=== PATIENT | female | born 1960 | race Hispanic/Latino ===

== ENCOUNTER 2016-11-07 02:52 | Inpatient (IN) | payer OTHER ==
--- NOTE | 2016-11-07 02:56 | ED PDOC ---
Arrival/HPI - General Historian: Patient - History of Present Illness Time/Duration: 4-6 hours Symptom Onset: Sudden Symptom Course: Worsening Quality: Stabbing, Gas Like Severity Level: Severe Activities at Onset: Rest - General Chief Complaint: Abdominal Pain Time Seen by Provider: 11/07/16 02:55 - History of Present Illness Narrative History of Present Illness (Text): 11/07/16 03:24 55yo F with PMHx of Type 1 DM here for evaluation of severe abdominal pain. Patient states that she started having some right sided abdominal pain at 4PM yesterday afternoon after eating some chicken and sausage paella. Pain started about an hour after eating. She reports that initially the pain could be described as gas-like. She was able to find a comfortable position to lay in and fell asleep at 9PM. She woke up abruptly just prior to arrival with severe right upper and right lower abdominal pain. Described as 10/10, severe, sharp pain. Unable to find a comfortable position. She reports some mild nausea last night, none currently. Denies any diarrhea and reports a normal BM at 1AM. Does report chills. No urinary symptoms. Denies CP/SOB. No Headaches. She checked her Finger Stick Blood glucose prior to coming and it was 160. PMD: Dr. Lopez PMHx: Type 1 DM PSHx: Right Carpal Tunnel release. 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 Denies any Tobacco, Social ETOH use. Denies illicit drugs NKDA (Magalis,Rafael) Past Medical History - Provider Review Nursing Documentation Reviewed: Yes - Endocrine/Metabolic Hx Diabetes Mellitus Type 1: Yes Family/Social History - Physician Review Nursing Documentation Reviewed: Yes Family/Social History: No Known Family HX Smoking Status: Never Smoked Frequency of alcohol use: Socially Hx Substance Use: No Allergies/Home Meds Allergies/Adverse Reactions: Allergies No Known Allergies Allergy (Verified 11/07/16 03:06) Home Medications: Home Meds Medication Instructions Recorded Confirmed Insulin Regular [HumuLIN R] 4 unit SQ ACBD 11/07/16 11/07/16 Insulin Glargine, Recombina 12 unit SC HS 11/07/16 11/07/16 [Lantus] Review of Systems - Physician Review All systems were reviewed & negative as marked: Yes - Review of Systems Constitutional: Normal Eyes: Normal ENT: Normal Respiratory: Normal Cardiovascular: Normal. absent: Chest Pain, Palpitations, SPRINGER Gastrointestinal: Abdominal Pain. absent: Constipation, Diarrhea, Nausea, Vomiting Genitourinary Female: absent: Dysuria, Frequency, Hematuria Musculoskeletal: absent: Arthralgias, Back Pain Skin: absent: Rash, Skin Lesions Neurological: absent: Headache, Dizziness Endocrine: absent: Diaphoresis Physical Exam Temperature: Febrile Blood Pressure: Normal Pulse: Tachycardic Respiratory Rate: Normal Appearance: Positive for: Ill-Appearing, Uncomfortable Pain Distress: Severe Mental Status: Positive for: Alert and Oriented X 3 - Systems Exam Head: Present: Atraumatic, Normocephalic Extroacular Muscles: Present: EOMI Conjunctiva: Present: Normal. No: Injected, Icteric Mouth: Present: Moist Mucous Membranes. No: Dry Neck: Present: Normal Range of Motion. No: MIDLINE TENDERNESS, JVD Respiratory/Chest: Present: Clear to Auscultation, Good Air Exchange. No: Respiratory Distress, Accessory Muscle Use, Wheezes, Rhonchi Cardiovascular: Present: Regular Rate and Rhythm, Normal S1, S2. No: Murmurs Abdomen: Present: Tenderness (RUQ and RLQ tenderness), Peritoneal Signs, Guarding (voluntary guarding. ), McBurney's Point Tender (RLQ tenderness), Other (Right lower quadrant abdominal tenderness on palpation. No Rebound. Soft , non-distended. ). No: Distention, Rebound Back: Present: Normal Inspection Upper Extremity: Present: Normal Inspection. No: Edema Lower Extremity: Present: Normal Inspection, NORMAL PULSES. No: Edema, CALF TENDERNESS Neurological: Present: GCS=15 Skin: Present: Warm, Dry, Normal Color Psychiatric: Present: Alert, Oriented x 3 Medical Decision Making ED Course and Treatment: 11/07/16 04:21 55yo F with PMHx of DM here for evaluation of severe abdominal pain - Patient with RUQ and RLQ abd pain - Bedside US of the RUQ performed with no apparent cholelithiasis. Will get formal ABD US - CT Abd/Pelvis w/IV - Abd US complete - CBC - CMP - Mg - Phos - UA - Morphine - IVF - Reassess and dispo 11/07/16 04:43 Abd US - Negative sonographic mejia's. No wall thickening. No cholelithiasis. No perichole fluid. CBD 4mm. Leukocytosis 12.7 Hb 11.3 Hct 34.1 11/07/16 04:54 Upon reevaluation, patient with mildly improved pain. - Morphine 8mg 11/07/16 05:25 CT Abd/Pelvis - Acute Appendicitis. Possible microperforation. - CXR - EKG - Zosyn - NS @ 140 - NPO - Discussed findings with patient. All questions and concerns addressed. Patient understands and agrees with plan. - Discussed case with Dr. Parmar. Accepts patient under her service. Agrees with current plan. Requests medical consult for Type 1 DM management. - Discussed case with Surgery Resident, who agrees with plan and will come evaluate the patient. Discussed case with medical photographer, who states that he will come to assess the patient in the ED. (Rafael Blancas) 11/07/16 06:27 Patient seen by resident and then evaluated by me. Agree with above documentation (Layla Agustin) - Lab Interpretations Lab Results: 11/07/16 03:20 11/07/16 03:20 Lab Results 11/07/16 04:25: Urine Color Yellow, Urine Appearance Clear, Urine pH 8.5, Ur Specific [place] 1.015, Urine Protein Negative, Urine Glucose (UA) >=1000, Urine Ketones 40 H, Urine Blood Negative, Urine Nitrate Negative, Urine Bilirubin Negative, Urine Urobilinogen 0.2, Ur Leukocyte Esterase Negative 11/07/16 03:20: Sodium 135, Potassium 4.1, Chloride 101, Carbon Dioxide 24, Anion Gap 14, BUN 16, Creatinine 0.9, Est GFR ( Amer) > 60, Est GFR (Non- Af Amer) > 60, Random Glucose 281 H, Calcium 10.4, Phosphorus 2.2 L, Magnesium 1.6 L, Total Bilirubin 0.8, AST 35, ALT 31, Alkaline Phosphatase 124, Total Protein 7.5, Albumin 4.2, Globulin 3.3, Albumin/Globulin Ratio 1.3 11/07/16 03:20: PT 10.9, INR 1.01, APTT 29.3 11/07/16 03:20: WBC 12.7 H, RBC 3.99, Hgb 11.3 L, Hct 34.1 L, MCV 85.5, MCH 28.3 , MCHC 33.1, RDW 13.5, Plt Count 305, MPV 9.2, Gran % 76.7 H, Lymph % (Auto) 17.0 L, Woodson % (Auto) 5.2, Eos % (Auto) 0.9 L, Baso % (Auto) 0.2, Gran # 9.70 H , Lymph # 2.2, Woodson # 0.7 H, Eos # 0.1, Baso # 0.03 - RAD Interpretation Radiology Orders: 11/07/16 03:15 ABD & PELVIS IV CONTRAST ONLY [CT] Stat ABDOMEN COMPLETE [US] Stat - Medication Orders Current Medication Orders: Hydromorphone HCl (Dilaudid) 1 mg IVP Q4H PRN PRN Reason: Pain, moderate (4-7) Sodium Chloride (Sodium Chloride 0.9%) 1,000 mls @ 120 mls/hr IV .Q8H20M YISSEL Magnesium Sulfate 2 gm/ Sodium (Chloride) 104 mls @ 102 mls/hr IVPB ONCE ONE Stop: 11/07/16 07:03 Sodium Phosphate 15 mmole/ (Sodium Chloride) 255 mls @ 42.5 mls/hr IVPB ONCE ONE Stop: 11/07/16 12:11 Metronidazole (Flagyl) 500 mg in 100 mls @ 100 mls/hr IVPB Q8 YISSEL PRN Reason: Protocol Ampicillin Sodium/Sulbactam (Sodium 3 gm/ Sodium Chloride) 100 mls @ 200 mls/ hr IVPB Q6 YISSEL PRN Reason: Protocol Discontinued Medications Sodium Chloride (Sodium Chloride 0.9%) 1,000 mls @ 999 mls/hr IV .Q1H1M STA Stop: 11/07/16 04:15 Last Admin: 11/07/16 03:37 Dose: 999 mls/hr Piperacillin Sod/Tazobactam Sod (Zosyn 3.375 In Ns 100ml) 100 mls @ 200 mls/hr IVPB STAT STA PRN Reason: Protocol Stop: 11/07/16 05:32 Last Admin: 11/07/16 05:41 Dose: 200 mls/hr Iohexol (Omnipaque 350 100 Ml) Confirm Administered Dose 350 mg .ROUTE .STK-MED ONE Stop: 11/07/16 04:03 Morphine Sulfate (Morphine) 4 mg IVP STAT STA Stop: 11/07/16 03:16 Last Admin: 11/07/16 03:35 Dose: 4 mg Morphine Sulfate (Morphine) 8 mg IVP STAT STA Stop: 11/07/16 04:53 Last Admin: 11/07/16 05:06 Dose: 8 mg - PA / PATIENT OBSERVER / Resident Statement / has reviewed & agrees with the documentation as recorded. / has examined the patient and agrees with the treatment plan. Disposition/Present on Arrival - Present on Arrival Any Indicators Present on Arrival: No History of DVT/PE: No History of Uncontrolled Diabetes: No Urinary Catheter: No History of Decub. Ulcer: No - Disposition Have Diagnosis and Disposition been Completed?: Yes Disposition Time: 05:37 Patient Plan: Admission - Disposition Diagnosis: Acute appendicitis Disposition: HOSPITALIZED Condition: STABLE
[2016-11-07] MEDS ORDERED: Morphine 4 mg/ml ISec IVP STA ×2 (03:15→04:52)
[2016-11-07] MEDS ORDERED: Sodium Chloride 0.9% 1,000 ML IV STA (03:15)
[2016-11-07 03:39] LABS: BASO # 0.03 K/mm3 (0.0-2.0); BASO % 0.2 % (0.0-3.0); EOS # 0.1 (0.0-0.7); EOS % 0.9 % (1.5-5.0); GRAN # 9.7 (1.4-6.5); GRAN % 76.7 % (50.0-68.0); HEMATOCRIT 34.1 % (36.0-48.0); LYMPH # 2.2 (1.2-3.4); MEAN CELL VOLUME 85.5 fl (80.0-105.0); MEAN CORPUSCULAR HEMOGLOBIN 28.3 pg (25.0-35.0); MEAN CORPUSCULAR HGB CONC 33.1 g/dl (31.0-37.0); MEAN PLATELET VOLUME 9.2 fl (7.0-11.0); MONO # 0.7 (0.1-0.6); MONO % 5.2 % (1.0-6.0); RED CELL DISTRIBUTION WIDTH 13.5 % (11.5-14.5); WHITE BLOOD COUNT 12.7 10^3/ul (4.5-11.0)
[2016-11-07 03:49] LABS: INR 1.01 (0.93-1.08); PARTIAL THROMBOPLASTIN TIME 29.3 Seconds (23.7-30.8)
[2016-11-07 03:54] LABS: ALB/GLOB RATIO 1.3 (1.1-1.8); ALKALINE PHOSPHATASE 124 U/L (38-133); ALT/SGPT 31 U/L (7-56); AST/SGOT 35 U/L (15-39); BILIRUBIN,TOTAL 0.8 mg/dL (0.2-1.3); BLOOD UREA NITROGEN 16 mg/dL (7-21); CALCIUM 10.4 mg/dL (8.4-10.5); CARBON DIOXIDE 24 mmol/L (21-33); CHLORIDE 101 mmol/L (95-110); GFR AFRICAN-AMERICAN > 60; GLUCOSE,RANDOM 281 mg/dL (70-110); MAGNESIUM 1.6 mg/dL (1.7-2.2); PHOSPHOROUS 2.2 mg/dL (2.5-4.5); POTASSIUM 4.1 mmol/L (3.6-5.0); SODIUM 135 mmol/L (132-148); TOTAL PROTEIN 7.5 g/dL (5.8-8.3)
[2016-11-07] MEDS ORDERED: Iohexol 350 MG/100 ML VIAL ONE (04:02)
--- NOTE | 2016-11-07 04:36 | US ---
EXAM: US Abdomen Complete EXAM DATE/TIME: 11/07/2016 3:15 AM CLINICAL HISTORY: 55 years old, female; Pain; Abdominal pain; Other: Ruq; Additional info: Ruq pain TECHNIQUE: Real-time ultrasound of the abdomen (complete) with image documentation. COMPARISON: No relevant prior studies available. FINDINGS: There is a negative sonographic Curran's sign per space technologist. No gallstones. No pericholecystic fluid. The gallbladder wall measures 2 mm which is within normal limits. The common bile duct measures 4 mm which is within normal limits. The liver is normal and measures 18 cm. The spleen is normal. The pancreas is normal. No hydronephrosis. The right kidney measures 10.8 cm in length and the left kidney measures 9.3 cm in length. IMPRESSION: No acute findings.
[2016-11-07] MEDS ORDERED: Piperacillin/Tazobact 3.375 gm 100 ML IVPB STA (05:03)
--- NOTE | 2016-11-07 05:03 | CT ---
EXAM: CT Abdomen and Pelvis With Intravenous Contrast EXAM DATE/TIME: 11/07/2016 3:15 AM CLINICAL HISTORY: 55 years old, female; Pain; Abdominal pain; Localized; Right lower quadrant (rlq); Additional info: Ruq and rlq abd pain TECHNIQUE: Axial computed tomography images of the abdomen and pelvis with intravenous contrast. All CT scans at this facility use one or more dose reduction techniques, viz.: automated exposure control; ma/kV adjustment per patient size (including targeted exams where dose is matched to indication; i.e. head); or iterative reconstruction technique. Coronal and sagittal reformatted images were created and reviewed. CONTRAST: 94 mL of omni 350 administered intravenously. COMPARISON: No relevant prior studies available. FINDINGS: The liver is normal. The spleen is normal. The pancreas is normal. No gallstones. No hydronephrosis or perinephric stranding. The appendix is identified on coronal images 37 - 53, axial images 112 121. There is a faint 5 mm appendicolith at the base on coronal image 51, axial image 121 with a fluid-filled appendix coursing superiorly. The appendix is dilated measuring 10 mm and there is lack of intraluminal air. There is stranding in the surrounding fat consistent with inflammation. On axial image 117 and coronal image 54, there is an air foci along the cecal wall that is not clearly intraluminal possibly representing very early microperforation. No abscess collection. IMPRESSION: Positive appendicitis as described in detail above.
[2016-11-07] MEDS ORDERED: Sodium Chloride 0.9% 1,000 ML IV SCH (05:15)
[2016-11-07 05:17] LABS: PH,URINE 8.5 (4.7-8.0); URINE BILIRUBIN NEGATIVE (NEGATIVE); URINE BLOOD NEGATIVE (NEGATIVE); URINE GLUCOSE (UA) >=1000 mg/dL (NEGATIVE); URINE KETONE 40 mg/dL (NEGATIVE); URINE LEUKOCYTE ESTERASE NEGATIVE Leu/uL (NEGATIVE); URINE PROTEIN NEGATIVE mg/dL (<30 mg/dL); URINE UROBILINOGEN 0.2 E.U./dL (<1 E.U./dL)
[2016-11-07 05:24] LABS: URINE APPEARANCE CLEAR (CLEAR); URINE COLOR YELLOW (YELLOW)
[2016-11-07] MEDS ORDERED: Magnesium Sulfate 2 GM in Sodium Chloride 0.9% 100 ML IVPB ONE (06:02)
[2016-11-07] MEDS ORDERED: Potassium Phosphate 3 mmol/ml Inj IV ONE (06:02)
[2016-11-07] MEDS ORDERED: Sodium Phosphate 15 MMOLE in Sodium Chloride 0.9% 250 ML IVPB ONE (06:12)
[2016-11-07] MEDS ORDERED: HYDROmorphone 1 mg/ml ISec IVP PRN (06:24)
--- NOTE | 2016-11-07 06:33 | CP.PCM.CON ---
Addendum entered and electronically signed by Zuleyma Avalos DO 11/07/16 07:14 : Plan: 12 units of Levemir SC; Lispro-low sliding scale, accuchecks q4h Original Note: <Zuleyma Avalos - Last Filed: 11/07/16 07:00> History of Present Illness - History of Present Illness History of Present Illness: Zuleyma Avalos DO, PGY-1, Medical Consult note CC: RLQ Abdominal Pain 55 year old with a past medical history significant for Type I DM presents to the ED for 1 day of RLQ pain. She states yesterday at noon she developed some sharp, RLQ abdominal pain that became severe within an hour. She thought it was just gas or bloating, so she took some Tums, went for a walk, and did some yoga - all of which was unrelieving. She had nausea and no appetite, but no vomiting , diarrhea, fever. She had trouble finding a comfortable position in bed, but fell asleep with a pillow between her thighs, one that she hugged, in the position. GIven the increasing severity(scaled 10/10) and the abrupt nature of the RLQ pain she came to the ED. PMD: Dr. Guerita Pollock PMH: Type I DM diagnosed at age 36 Medications: Novolog sliding scale, Lantus HS 12-14 units, Vitamin D Allergies: NKDA Surgical History: Right carpal tunnel release and right (benign) breast mass removed Hospitalizations: DKA last year, left thumb tendinitis OBGYN: 5 miscarriages, 1 ectopic Social: , is currently away on a business trip in [place], no children, criminal defense attorney by occupation, looking for a new job, no tobacco, alcohol rarely, no illicit drugs Review of Systems - Constitutional Constitutional: As Per HPI Past Patient History - Past Social History Smoking Status: Never Smoked - CARDIAC Hx Cardiac Disorders: No - PULMONARY Hx Respiratory Disorders: No - NEUROLOGICAL Hx Neurological Disorder: No - HEENT Hx HEENT Problems: No - RENAL Hx Chronic Kidney Disease: No - ENDOCRINE/METABOLIC Hx Diabetes Mellitus Type 1: Yes - HEMATOLOGICAL/ONCOLOGICAL Hx Blood Disorders: No - INTEGUMENTARY Hx Dermatological Problems: No - MUSCULOSKELETAL/RHEUMATOLOGICAL Hx Musculoskeletal Disorders: No - GASTROINTESTINAL Hx Gastrointestinal Disorders: No - GENITOURINARY/GYNECOLOGICAL Hx Genitourinary Disorders: No - PSYCHIATRIC Hx Substance Use: No - SURGICAL HISTORY Hx Tonsillectomy: Yes Other/Comment: rt carpal tunnel Meds Allergies/Adverse Reactions: Allergies Allergy/AdvReac Type Severity Reaction Status Date / Time No Known Allergies Allergy Verified 11/07/16 03:06 - Medications Medications: Current Medications Sodium Chloride (Sodium Chloride 0.9%) 1,000 mls @ 120 mls/hr IV .Q8H20M YISSEL Magnesium Sulfate 2 gm/ Sodium (Chloride) 104 mls @ 102 mls/hr IVPB ONCE ONE Stop: 11/07/16 07:03 Sodium Phosphate 15 mmole/ (Sodium Chloride) 255 mls @ 42.5 mls/hr IVPB ONCE ONE Stop: 11/07/16 12:11 Physical Exam - Constitutional Appears: No Acute Distress, Younger Than Stated Age - Head Exam Head Exam: ATRAUMATIC, NORMOCEPHALIC - Eye Exam Eye Exam: EOMI, Normal appearance, PERRL - ENT Exam ENT Exam: Mucous Membranes Dry, Normal Oropharynx - Neck Exam Neck exam: Positive for: Normal Inspection. Negative for: Thyromegaly - Respiratory Exam Respiratory Exam: Clear to Auscultation Bilateral Additional comments: stomach gargles heard on left lung auscultation, tachypnea with RR of 20 - Cardiovascular Exam Cardiovascular Exam: RRR, +S1, +S2 - GI/Abdominal Exam GI & Abdominal Exam: Guarding Additional comments: Rebound tenderness on release of LLQ pain, paion in RLQ when flexing right hip when supine, positive for tenderness in McBurney's point - Extremities Exam Extremities exam: Positive for: normal capillary refill, normal inspection, pedal pulses present - Back Exam Back exam: NORMAL INSPECTION. absent: CVA tenderness (L), CVA tenderness (R) - Neurological Exam Neurological exam: Alert, CN II-XII Intact, Oriented x3 - Psychiatric Exam Psychiatric exam: Anxious, Normal Affect, Normal Mood - Skin Skin Exam: Dry, Intact, Normal Color, Warm Results - Vital Signs Recent Vital Signs: Last Vital Signs Temp 99.3 F 11/07/16 05:59 Pulse 78 11/07/16 05:59 Resp 16 11/07/16 05:59 BP 123/58 L 11/07/16 05:59 Pulse Ox 99 11/07/16 05:59 - Labs Result Diagrams: 11/07/16 03:20 11/07/16 03:20 Assessment & Plan - Assessment and Plan (Free Text) Assessment: 55 year old female with PMH of Type I DM who presents with 1 day of acute, severe, unremitting RLQ with findings classic for acute appendicitis. Plan: 1) Acute Appendicitis - General Surgery is on the case, planning for surgery soon today. Case discussed with surgery resident, PGY-3. - NPO - 120cc/hr NS - 2 grams of MgSO4 - Unasyn 3 grams q6h - Flagyl 500 mg q6h - Dilaudid 1 mg q4h IVP PRN 2) IDDM - Insulin sliding scale 3) Post-operative planning - Date & Time Date: 11/07/16 Time: 06:59 <Mustapha Lantigua P - Last Filed: 11/07/16 08:38> Meds - Medications Medications: Current Medications Hydromorphone HCl (Dilaudid) 1 mg IVP Q4H PRN PRN Reason: Pain, moderate (4-7) Hydromorphone HCl (Dilaudid) 0.5 mg IVP Q3 PRN PRN Reason: severe/breakthrough pain Sodium Chloride (Sodium Chloride 0.9%) 1,000 mls @ 120 mls/hr IV .Q8H20M YISSEL Sodium Phosphate 15 mmole/ (Sodium Chloride) 255 mls @ 42.5 mls/hr IVPB ONCE ONE Stop: 11/07/16 12:11 Metronidazole (Flagyl) 500 mg in 100 mls @ 100 mls/hr IVPB Q8 YISSEL PRN Reason: Protocol Ampicillin Sodium/Sulbactam (Sodium 3 gm/ Sodium Chloride) 100 mls @ 200 mls/ hr IVPB Q6 YISSEL PRN Reason: Protocol Insulin Detemir (Levemir) 12 unit SC HS YISSEL Insulin Human Lispro (Humalog Low) 0 units SC Q4 YISSEL PRN Reason: Protocol Results - Vital Signs Recent Vital Signs: Last Vital Signs Temp 99 F 11/07/16 08:33 Pulse 81 11/07/16 08:33 Resp 20 11/07/16 08:33 BP 119/74 11/07/16 08:33 Pulse Ox 98 11/07/16 08:33 - Labs Result Diagrams: 11/07/16 03:20 11/07/16 03:20 Labs: Laboratory Results - last 24 hr 11/07/16 07:52 POC Glucose (mg/dL) 226 H Attending/Attestation - Attestation I have personally seen and examined this patient.: Yes I have fully participated in the care of the patient.: Yes I have reviewed all pertinent clinical information: Yes Notes (Text): Patient being admitted with acute appendicitis and has h/o type 1 DM on lantus 12 units, in the night and takes about 2-3 units of regular insulin with snacks and about 4-6 units with the meals, has taken her night lantus insulin. Lantus will be changed to Levemir 12 units hs, humlog low sliding scale coverage will be started q4 hrs than usual q6 hr coverage to have more close and frequent coverage. Patient has ketones in the urine, normal bicarb, not RR about18/min, clinically not in DKA.
--- NOTE | 2016-11-07 06:57 | CP.PCM.HP ---
History of Present Illness - History of Present Illness History of Present Illness: Gen Surg: Dr Parmar Pt is a 55F with PMH of DM1 who presents with new onset abdominal pain. Pt states pain started around 5PM yesterday and is located mainly on the right side of the abdomen. Pain has been a persistent 10/10, with associated nausea. Pt denies any emesis, diarrhea, fevers or chills. She has had no appetite since onset. Pt has had only minimal relief s/p [address] scan confirms appendicitis PMH: DM1 PSH: right carpal tunnel, right breast lumpectomy NKDA LMP: Menopause x 3 years Present on Admission - Present on Admission Any Indicators Present on Admission: No Review of Systems - Review of Systems All systems: reviewed and no additional remarkable complaints except (as per hpi ) Past Patient History - Past Social History Smoking Status: Never Smoked - CARDIAC Hx Cardiac Disorders: No - PULMONARY Hx Respiratory Disorders: No - NEUROLOGICAL Hx Neurological Disorder: No - HEENT Hx HEENT Problems: No - RENAL Hx Chronic Kidney Disease: No - ENDOCRINE/METABOLIC Hx Diabetes Mellitus Type 1: Yes - HEMATOLOGICAL/ONCOLOGICAL Hx Blood Disorders: No - INTEGUMENTARY Hx Dermatological Problems: No - MUSCULOSKELETAL/RHEUMATOLOGICAL Hx Musculoskeletal Disorders: No - GASTROINTESTINAL Hx Gastrointestinal Disorders: No - GENITOURINARY/GYNECOLOGICAL Hx Genitourinary Disorders: No - PSYCHIATRIC Hx Substance Use: No - SURGICAL HISTORY Hx Tonsillectomy: Yes Other/Comment: rt carpal tunnel Meds Allergies/Adverse Reactions: Allergies Allergy/AdvReac Type Severity Reaction Status Date / Time No Known Allergies Allergy Verified 11/07/16 03:06 Physical Exam - Constitutional Appears: Non-toxic - Head Exam Head Exam: NORMOCEPHALIC - Eye Exam Eye Exam: Normal appearance - ENT Exam ENT Exam: Mucous Membranes Moist - Respiratory Exam Respiratory Exam: absent: Accessory Muscle Use, Respiratory Distress - Cardiovascular Exam Cardiovascular Exam: REGULAR RHYTHM - GI/Abdominal Exam GI & Abdominal Exam: Guarding (voluntary), Rebound, Soft, Tenderness (RLQ). absent: Distended, Hernia, Rigid - Rectal Exam Rectal Exam: absent: Deferred - Extremities Exam Extremities exam: Negative for: pedal edema - Neurological Exam Neurological exam: Alert, Oriented x3 - Psychiatric Exam Psychiatric exam: Normal Affect, Normal Mood Results - Vital Signs Recent Vital Signs: Last Vital Signs Temp 99.3 F 11/07/16 05:59 Pulse 78 11/07/16 05:59 Resp 16 11/07/16 05:59 BP 123/58 L 11/07/16 05:59 Pulse Ox 99 11/07/16 05:59 - Labs Result Diagrams: 11/07/16 03:20 11/07/16 03:20 Assessment & Plan - Assessment and Plan (Free Text) Assessment: 55F with acute appendicitis Plan: NPO IV fluids Iv abx Medical consult for management of DM1 OR for laparoscopic appendectomy d/w Dr Ghulam Robertson, PGY3
--- NOTE | 2016-11-07 07:01 | CP.PCM.PN ---
Subjective - Date & Time of Evaluation Date of Evaluation: 11/07/16 Time of Evaluation: 06:57 - Subjective Subjective: Patient being admitted with acute appendicitis and has h/o type 1 DM on lantus 12 units, in the night and takes about 2-3 units of regular insulin with snacks and about 4-6 units with the meals, has taken her night lantus insulin. Lantus will be changed to Levemir 12 units hs, humlog low sliding scale coverage will be started q4 hrs than usual q6 hr coverage to have more close and frequent coverage. Patient has ketones in the urine, normal bicarb, not RR about18/min, clinically not in DKA. Objective - Vital Signs/Intake and Output Vital Signs (last 24 hours): Temp Pulse Resp BP Pulse Ox 99.3 F 78 16 123/58 L 99 11/07/16 05:59 11/07/16 05:59 11/07/16 05:59 11/07/16 05:59 11/07/16 05:59 - Medications Medications: Current Medications Hydromorphone HCl (Dilaudid) 1 mg IVP Q4H PRN PRN Reason: Pain, moderate (4-7) Sodium Chloride (Sodium Chloride 0.9%) 1,000 mls @ 120 mls/hr IV .Q8H20M YISSEL Magnesium Sulfate 2 gm/ Sodium (Chloride) 104 mls @ 102 mls/hr IVPB ONCE ONE Stop: 11/07/16 07:03 Sodium Phosphate 15 mmole/ (Sodium Chloride) 255 mls @ 42.5 mls/hr IVPB ONCE ONE Stop: 11/07/16 12:11 Metronidazole (Flagyl) 500 mg in 100 mls @ 100 mls/hr IVPB Q8 YISSEL PRN Reason: Protocol Ampicillin Sodium/Sulbactam (Sodium 3 gm/ Sodium Chloride) 100 mls @ 200 mls/ hr IVPB Q6 YISSEL PRN Reason: Protocol Insulin Detemir (Levemir) 12 unit SC HS YISSEL Insulin Human Lispro (Humalog Low) 0 units SC Q4 YISSEL PRN Reason: Protocol - Labs Labs: PT 10.9 Seconds (9.9-11.8) 11/07/16 03:20 INR 1.01 (0.93-1.08) 11/07/16 03:20 APTT 29.3 Seconds (23.7-30.8) 11/07/16 03:20
--- NOTE | 2016-11-07 07:48 | RAD ---
HISTORY: pre-op clearance COMPARISON: No prior. FINDINGS: LUNGS: No active pulmonary disease. PLEURA: No significant pleural effusion identified, no pneumothorax apparent. CARDIOVASCULAR: Normal. OSSEOUS STRUCTURES: No significant abnormalities. VISUALIZED UPPER ABDOMEN: Normal. OTHER FINDINGS: None. IMPRESSION: No active disease.
[2016-11-07] MEDS: Insulin Lispro (humaLOG) LOW Coverage SC SCH ×2 (08:34→12:43)
[2016-11-07] MEDS: HYDROmorphone 0.5 mg/0.5 ml ISec IVP PRN ×2 (11:41→21:47)
[2016-11-07] MEDS: Ampicillin/Sulbactam 3 GM in Sodium Chloride 0.9% 100 ML IVPB SCH ×3 (12:43→23:11)
[2016-11-07] MEDS: metroNIDAZOLE IV 500 mg/100 ml 500 MG/100 ML BAG IVPB SCH ×2 (13:39→21:46)
[2016-11-07] MEDS ORDERED: Lactated Ringer's 1,000 ML IV SCH (13:42)
[2016-11-07] MEDS ORDERED: Succinylcholine 200 mg/10 ml Inj IV ONE (13:47)
[2016-11-07] MEDS ORDERED: Propofol 10 mg/ml Inj (20 ML) ONE ×2 (13:47→15:19)
[2016-11-07] MEDS ORDERED: Bupivacaine 0.5% Inj(30mL) ONE (14:20)
[2016-11-07] MEDS ORDERED: Rocuronium 10 mg/ml (5 ml) ONE (14:41)
[2016-11-07] MEDS ORDERED: Neostigmine Methylsulfate 3mg/3ml Syringe IV ONE (15:21)
--- NOTE | 2016-11-07 15:28 | CARD ---
APPROVED REPORT EKG Measurement Heart [id number] HI [id number] [id number] <Conclusion> Normal sinus rhythm Normal ECG
[2016-11-07] MEDS ORDERED: Phenylephrine 10 mg/ml Inj ONE (15:56)
[2016-11-07] MEDS ORDERED: Desflurane Inhalation Anesthetic Liq (240 ml) ONE (16:11)
--- NOTE | 2016-11-07 16:48 | PCM.SURG1 ---
Surgeon's Initial Post Op Note - Surgeon's Notes Surgeon: Dr. Ureña Insurance Risk Analyst: Dr. Beyer PGY3 Dr. Rees PGY2 Dr. Nelson PGY1 Type of Anesthesia: General Endo, Local Pre-Operative Diagnosis: acute appendicitis Operative Findings: see op report Post-Operative Diagnosis: acute perforated appendicitis Operation Performed: laparoscopic appendectomy Specimen/Specimens Removed: appendix Estimated Blood Loss: EBL {In ML}: 20 Blood Products Given: N/A Drains Used: Moshe Post-Op Condition: Good Date of Surgery/Procedure: 11/07/16 Time of Surgery/Procedure: 16:48
[2016-11-07] MEDS: Insulin Lispro (humaLOG) MEDIUM Coverage SC SCH ×2 (18:37→21:46)
[2016-11-07] MEDS: Sodium Chloride 0.9% 1,000 ML IV SCH (18:40)
[2016-11-07] MEDS ORDERED: Insulin Detemir 100 units/ml Vial (Levemir) SC SCH (22:00)
[2016-11-08] MEDS: HYDROmorphone 0.5 mg/0.5 ml ISec IVP PRN ×2 (04:23→11:09)
[2016-11-08] MEDS: Ampicillin/Sulbactam 3 GM in Sodium Chloride 0.9% 100 ML IVPB SCH ×4 (05:05→23:44)
[2016-11-08] MEDS: metroNIDAZOLE IV 500 mg/100 ml 500 MG/100 ML BAG IVPB SCH ×3 (06:15→22:22)
--- NOTE | 2016-11-08 06:53 | CP.PCM.PN ---
<Dasia Mixon - Last Filed: 11/08/16 16:38> Subjective - Date & Time of Evaluation Date of Evaluation: 11/08/16 Time of Evaluation: 09:30 - Subjective Subjective: PGY2 Medicine note for Dr. Smith Patient seen and examined at bedside. Patient is POD#1 lap appy. She reports some abdominal discomfort and suprapubic discomfort. She denies fever, chills, chest pain, palpitations, SOB, cough, nausea, vomiting, bowel/bladder complaints , pain/swelling in her legs bilaterally. She is tolerating diet. Black drain 40cc serosanguinous fluid. Objective - Vital Signs/Intake and Output Vital Signs (last 24 hours): Temp Pulse Resp BP Pulse Ox 99.6 F 68 16 98/52 L 98 11/07/16 18:20 11/07/16 18:20 11/07/16 18:20 11/07/16 18:20 11/07/16 18:20 Intake and Output: 11/07/16 11/08/16 18:59 06:59 Intake Total 240 Balance 240 - Medications Medications: Current Medications Acetaminophen (Tylenol 325mg Tab) 650 mg PO Q4H PRN PRN Reason: Fever >100.4 F Heparin Sodium (Porcine) (Heparin) 5,000 units SC Q12 [facility] PRN Reason: Protocol Hydromorphone HCl (Dilaudid) 0.5 mg IVP Q3 PRN PRN Reason: severe/breakthrough pain Last Admin: 11/08/16 04:23 Dose: 0.5 mg Sodium Chloride (Sodium Chloride 0.9%) 1,000 mls @ 120 mls/hr IV .Q8H20M [facility] Last Admin: 11/07/16 18:40 Dose: 120 mls/hr Metronidazole (Flagyl) 500 mg in 100 mls @ 100 mls/hr IVPB Q8 [facility] PRN Reason: Protocol Last Admin: 11/08/16 06:15 Dose: 100 mls/hr Ampicillin Sodium/Sulbactam (Sodium 3 gm/ Sodium Chloride) 100 mls @ 200 mls/ hr IVPB Q6 [facility] PRN Reason: Protocol Last Admin: 11/08/16 05:05 Dose: 200 mls/hr Insulin Detemir (Levemir) 12 unit SC HS [facility] Insulin Human Lispro (Humalog Med) 0 units SC ACHS [facility] PRN Reason: Protocol Last Admin: 11/07/16 21:46 Dose: 2 units Tramadol HCl (Ultram) 50 mg PO Q6 PRN PRN Reason: Pain, moderate (4-7) Last Admin: 11/08/16 00:26 Dose: 50 mg - Labs Labs: PT 10.9 Seconds (9.9-11.8) 11/07/16 03:20 INR 1.01 (0.93-1.08) 11/07/16 03:20 APTT 29.3 Seconds (23.7-30.8) 11/07/16 03:20 - Constitutional Appears: Non-toxic, No Acute Distress - Head Exam Head Exam: NORMAL INSPECTION - Eye Exam Eye Exam: EOMI, Normal appearance. absent: Conjunctival injection, Scleral icterus - ENT Exam ENT Exam: Mucous Membranes Moist - Respiratory Exam Respiratory Exam: Clear to Ausculation Bilateral, NORMAL BREATHING PATTERN. absent: Accessory Muscle Use, Rales, Rhonchi, Wheezes, Respiratory Distress - Cardiovascular Exam Cardiovascular Exam: REGULAR RHYTHM, RRR, +S1, +S2 - GI/Abdominal Exam GI & Abdominal Exam: Soft, Tenderness (suprapubic) Additional comments: dressings c/d/i serosanguinous Moshe drain 40cc serosanguinous - Extremities Exam Extremities Exam: Normal Inspection - Neurological Exam Neurological Exam: Alert, Awake, Oriented x3 - Psychiatric Exam Psychiatric exam: Normal Affect, Normal Mood - Skin Skin Exam: Dry, Intact, Normal Color, Warm Assessment and Plan - Assessment and Plan (Free Text) Assessment: 55 year old female PMHx Type 1 DM presented with acute appendicitis. Medicine consulted for diabetes management. Plan: Acute Appendicitis - POD#1 lap appy - Unasyn 3gm ivpb q6 Day 2 - Flagyl 500mg ivpb q8 Day 2 - Tramadol 50mg po q6 prn - Tylenol 650mg po q4 prn - Dilaudid 0.5mg ivp q3 prn pain - NS @ 120cc/hr IDDM - f/u HgbA1c - Levemir 12u sc hs - RISS - Accucheck - Lipid panel WNL TG 45 Cholesterol 162 LDL 92 HDL 53 GI ppx: Protonix 40mg po dailyz DVT ppx: Heparin 5000u sc q12; SCDs Diet: Consistent carb diet Case discussed with Dr. Sarah Mixon PGY2 <Raissa Smith - Last Filed: 11/08/16 17:15> Objective - Vital Signs/Intake and Output Vital Signs (last 24 hours): Temp Pulse Resp BP Pulse Ox 99.6 F 68 16 98/52 L 98 11/07/16 18:20 11/07/16 18:20 11/07/16 18:20 11/07/16 18:20 11/07/16 18:20 Intake and Output: 11/08/16 11/08/16 06:59 18:59 Intake Total 240 1440 Output Total 40 Balance 240 1400 - Medications Medications: Current Medications Acetaminophen (Tylenol 325mg Tab) 650 mg PO Q4H PRN PRN Reason: Fever >100.4 F Heparin Sodium (Porcine) (Heparin) 5,000 units SC Q12 [facility] PRN Reason: Protocol Last Admin: 11/08/16 10:10 Dose: 5,000 units Hydromorphone HCl (Dilaudid) 0.5 mg IVP Q3 PRN PRN Reason: severe breakthrough pain Sodium Chloride (Sodium Chloride 0.9%) 1,000 mls @ 120 mls/hr IV .Q8H20M [facility] Last Admin: 11/07/16 18:40 Dose: 120 mls/hr Metronidazole (Flagyl) 500 mg in 100 mls @ 100 mls/hr IVPB Q8 [facility] PRN Reason: Protocol Last Admin: 11/08/16 14:49 Dose: 100 mls/hr Ampicillin Sodium/Sulbactam (Sodium 3 gm/ Sodium Chloride) 100 mls @ 200 mls/ hr IVPB Q6 [facility] PRN Reason: Protocol Last Admin: 11/08/16 11:40 Dose: 200 mls/hr Insulin Detemir (Levemir) 12 unit SC HS [facility] Insulin Human Lispro (Humalog Med) 0 units SC ACHS [facility] PRN Reason: Protocol Last Admin: 11/08/16 11:31 Dose: 10 units Lactobacillus Acidophilus (Bacid Acidophilus) 1 cap PO BID [facility] Pantoprazole Sodium (Protonix Ec Tab) 40 mg PO 0600 [facility] Tramadol HCl (Ultram) 50 mg PO Q6 PRN PRN Reason: Pain, moderate (4-7) Last Admin: 11/08/16 00:26 Dose: 50 mg - Labs Labs: 11/08/16 06:40 11/08/16 06:40 PT 10.9 Seconds (9.9-11.8) 11/07/16 03:20 INR 1.01 (0.93-1.08) 11/07/16 03:20 APTT 29.3 Seconds (23.7-30.8) 11/07/16 03:20 Attending/Attestation - Attestation I have personally seen and examined this patient.: Yes I have fully participated in the care of the patient.: Yes I have reviewed all pertinent clinical information, including history, physical exam and plan: Yes Notes (Text): 11/08/16 17:10 55 year old female with past medical history of diabetes who presented with acute appendicitis. She is s/p appendectomy POD #1. Continue with diet as tolerated. Continue with antibiotics and analgesics as per surgery. Medical consult was requested for diabetes management. Her fingersticks have been elevated since yesterday likely due to her levemir being held since admission. Initially it was held as she was NPO for surgery. However it was resumed postoperatively but not given last night. Will resume this morning. Continue with sliding scale. Monitor fingersticks during the day and give additional insulin as needed for tonight. A1c level was ordered. Raissa Smith MD Hospitalist.
[2016-11-08 07:01] LABS: BASO # 0.01 K/mm3 (0.0-2.0); BASO % 0.1 % (0.0-3.0); GRAN # 9.89 (1.4-6.5); GRAN % 77.8 % (50.0-68.0); LYMPH # 1.9 (1.2-3.4); LYMPH % 14.5 % (22.0-35.0); MEAN CELL VOLUME 87.3 fl (80.0-105.0); MEAN CORPUSCULAR HEMOGLOBIN 28.3 pg (25.0-35.0); MEAN CORPUSCULAR HGB CONC 32.4 g/dl (31.0-37.0); MEAN PLATELET VOLUME 9.6 fl (7.0-11.0); MONO % 7.6 % (1.0-6.0); RED CELL DISTRIBUTION WIDTH 13.9 % (11.5-14.5); WHITE BLOOD COUNT 12.7 10^3/ul (4.5-11.0)
[2016-11-08 07:13] LABS: ALB/GLOB RATIO 1.2 (1.1-1.8); ALKALINE PHOSPHATASE 99 U/L (38-133); ALT/SGPT 33 U/L (7-56); AST/SGOT 30 U/L (15-39); BILIRUBIN,TOTAL 0.5 mg/dL (0.2-1.3); BLOOD UREA NITROGEN 19 mg/dL (7-21); CALCIUM 8.6 mg/dL (8.4-10.5); CARBON DIOXIDE 20 mmol/L (21-33); CHLORIDE 104 mmol/L (98-107); GFR AFRICAN-AMERICAN > 60; MAGNESIUM 1.9 mg/dL (1.7-2.2); PHOSPHOROUS 3.6 mg/dL (2.5-4.5); POTASSIUM 4.8 mmol/L (3.6-5.0); SODIUM 135 mmol/L (132-148)
[2016-11-08 07:21] LABS: GLUCOSE,RANDOM 448 mg/dL (70-110)
--- NOTE | 2016-11-08 07:23 | CP.PCM.PN ---
<NegritaTracy - Last Filed: 11/08/16 09:36> Subjective - Date & Time of Evaluation Date of Evaluation: 11/08/16 Time of Evaluation: 07:22 - Subjective Subjective: General Surgery Dr. Ureña Pt S&E @bedside. Pt underwent laparoscopic appnedectomy. pt tolerated the procedure well w/ no complications. NAEO. pain improved. c/o suprapubic pain. denies F/C, N/V, D/C. urinating w/o difficulty. tolerating diet. Moshe 40cc Q24 - serosang Objective - Vital Signs/Intake and Output Vital Signs (last 24 hours): Temp Pulse Resp BP Pulse Ox 99.6 F 68 16 98/52 L 98 11/07/16 18:20 11/07/16 18:20 11/07/16 18:20 11/07/16 18:20 11/07/16 18:20 Intake and Output: 11/08/16 11/08/16 06:59 18:59 Intake Total 240 Balance 240 - Medications Medications: Current Medications Acetaminophen (Tylenol 325mg Tab) 650 mg PO Q4H PRN PRN Reason: Fever >100.4 F Heparin Sodium (Porcine) (Heparin) 5,000 units SC Q12 [facility] PRN Reason: Protocol Hydromorphone HCl (Dilaudid) 0.5 mg IVP Q3 PRN PRN Reason: severe/breakthrough pain Last Admin: 11/08/16 04:23 Dose: 0.5 mg Sodium Chloride (Sodium Chloride 0.9%) 1,000 mls @ 120 mls/hr IV .Q8H20M [facility] Last Admin: 11/07/16 18:40 Dose: 120 mls/hr Metronidazole (Flagyl) 500 mg in 100 mls @ 100 mls/hr IVPB Q8 [facility] PRN Reason: Protocol Last Admin: 11/08/16 06:15 Dose: 100 mls/hr Ampicillin Sodium/Sulbactam (Sodium 3 gm/ Sodium Chloride) 100 mls @ 200 mls/ hr IVPB Q6 [facility] PRN Reason: Protocol Last Admin: 11/08/16 05:05 Dose: 200 mls/hr Insulin Detemir (Levemir) 12 unit SC HS [facility] Insulin Human Lispro (Humalog Med) 0 units SC ACHS [facility] PRN Reason: Protocol Last Admin: 11/07/16 21:46 Dose: 2 units Tramadol HCl (Ultram) 50 mg PO Q6 PRN PRN Reason: Pain, moderate (4-7) Last Admin: 11/08/16 00:26 Dose: 50 mg - Labs Labs: 11/08/16 06:40 11/08/16 06:40 PT 10.9 Seconds (9.9-11.8) 11/07/16 03:20 INR 1.01 (0.93-1.08) 11/07/16 03:20 APTT 29.3 Seconds (23.7-30.8) 11/07/16 03:20 - Constitutional Appears: Non-toxic, No Acute Distress - Head Exam Head Exam: NORMAL INSPECTION - Eye Exam Eye Exam: Normal appearance - ENT Exam ENT Exam: Mucous Membranes Moist - Respiratory Exam Respiratory Exam: NORMAL BREATHING PATTERN. absent: Accessory Muscle Use, Respiratory Distress - GI/Abdominal Exam GI & Abdominal Exam: Soft, Tenderness (suprapubic TTP). absent: Distended, Guarding, Rebound Additional comments: dressings c/d/i Moshe present, serosanguinous - Extremities Exam Extremities Exam: Normal Inspection - Neurological Exam Neurological Exam: Alert, Awake, Oriented x3 - Psychiatric Exam Psychiatric exam: Normal Affect, Normal Mood - Skin Skin Exam: Dry, Normal Color, Warm Assessment and Plan - Assessment and Plan (Free Text) Assessment: 55 y/o F POD#1 s/p Lap appy - pain management - ADAT - strict BG control - monitor drain output - encourage Amb/OOB to chair/IS use Pt discussed w/ Dr. Niranjan Rees DO PGY2 <Mani Ureña - Last Filed: 11/09/16 18:31> Objective - Vital Signs/Intake and Output Vital Signs (last 24 hours): Temp Pulse Resp BP Pulse Ox 97.7 F 70 22 109/67 97 11/09/16 16:41 11/09/16 16:41 11/09/16 16:41 11/09/16 16:41 11/09/16 16:41 Intake and Output: 11/09/16 11/09/16 06:59 18:59 Intake Total 720 540 Output Total 75 Balance 645 540 - Medications Medications: Current Medications Acetaminophen (Tylenol 325mg Tab) 650 mg PO Q4H PRN PRN Reason: Fever >100.4 F Docusate Sodium (Colace) 100 mg PO DAILY [facility] Last Admin: 11/09/16 10:32 Dose: 100 mg Heparin Sodium (Porcine) (Heparin) 5,000 units SC Q12 [facility] PRN Reason: Protocol Last Admin: 11/09/16 10:32 Dose: 5,000 units Hydromorphone HCl (Dilaudid) 0.5 mg IVP Q3 PRN PRN Reason: severe breakthrough pain Last Admin: 11/08/16 17:25 Dose: 0.5 mg Metronidazole (Flagyl) 500 mg in 100 mls @ 100 mls/hr IVPB Q8 [facility] PRN Reason: Protocol Last Admin: 11/09/16 14:16 Dose: 100 mls/hr Ampicillin Sodium/Sulbactam (Sodium 3 gm/ Sodium Chloride) 100 mls @ 200 mls/ hr IVPB Q6 [facility] PRN Reason: Protocol Last Admin: 11/09/16 17:50 Dose: 200 mls/hr Insulin Detemir (Levemir) 15 unit SC [facility] Insulin Human Lispro (Humalog Med) 0 units SC ACHS [facility] PRN Reason: Protocol Last Admin: 11/09/16 17:07 Dose: 5 units Lactobacillus Acidophilus (Bacid Acidophilus) 1 cap PO BID [facility] Last Admin: 11/09/16 17:50 Dose: 1 cap Pantoprazole Sodium (Protonix Ec Tab) 40 mg PO 0600 [facility] Last Admin: 11/09/16 05:08 Dose: 40 mg Potassium Phos/Sodium Phos (Neutra-Phos) 1 pkt PO TID [facility] Stop: 11/10/16 10:01 Last Admin: 11/09/16 17:50 Dose: 1 pkt Simethicone (Mylicon Chew Tab) 80 mg PO HS PRN PRN Reason: GI distress Last Admin: 11/08/16 22:22 Dose: 80 mg Tramadol HCl (Ultram) 50 mg PO Q6 PRN PRN Reason: Pain, moderate (4-7) Last Admin: 11/09/16 11:22 Dose: 50 mg - Labs Labs: 11/09/16 06:00 11/09/16 06:00 PT 10.9 Seconds (9.9-11.8) 11/07/16 03:20 INR 1.01 (0.93-1.08) 11/07/16 03:20 APTT 29.3 Seconds (23.7-30.8) 11/07/16 03:20 Attending/Attestation - Attestation I have personally seen and examined this patient.: Yes I have fully participated in the care of the patient.: Yes I have reviewed all pertinent clinical information, including history, physical exam and plan: Yes Notes (Text): 11/09/16 18:31 Pt was seen and examined at bedside Agree with above note and assessment
[2016-11-08] MEDS: Insulin Lispro (humaLOG) MEDIUM Coverage SC SCH ×4 (07:57→21:39)
[2016-11-08 09:15] LABS: CHOLESTEROL 162 mg/dL (130-200)
[2016-11-08] MEDS ORDERED: Insulin Detemir 100 units/ml Vial (Levemir) SC ONE (10:14)
[2016-11-08] MEDS ORDERED: Insulin Lispro (HUMAlog) HIGH Coverage SC SCH (11:30)
[2016-11-08] MEDS ORDERED: HYDROmorphone 0.5 mg/0.5 ml ISec IVP PRN (13:35)
[2016-11-08] MEDS: Simethicone 80 mg Chewtab PO PRN (22:22)
[2016-11-08] MEDS: Sodium Chloride 0.9% 1,000 ML IV SCH (23:44)
[2016-11-09] MEDS: Pantoprazole 40 mg EC Tab PO SCH (05:08)
[2016-11-09] MEDS: Ampicillin/Sulbactam 3 GM in Sodium Chloride 0.9% 100 ML IVPB SCH ×4 (05:08→23:09)
[2016-11-09] MEDS: metroNIDAZOLE IV 500 mg/100 ml 500 MG/100 ML BAG IVPB SCH ×3 (06:14→21:53)
[2016-11-09 06:33] LABS: BASO # 0.03 K/mm3 (0.0-2.0); BASO % 0.3 % (0.0-3.0); EOS # 0.2 (0.0-0.7); EOS % 1.5 % (1.5-5.0); GRAN # 6.47 (1.4-6.5); GRAN % 64.7 % (50.0-68.0); HEMATOCRIT 27.8 % (36.0-48.0); LYMPH # 2.8 (1.2-3.4); MEAN CELL VOLUME 86.1 fl (80.0-105.0); MEAN CORPUSCULAR HEMOGLOBIN 27.9 pg (25.0-35.0); MEAN CORPUSCULAR HGB CONC 32.4 g/dl (31.0-37.0); MEAN PLATELET VOLUME 9.4 fl (7.0-11.0); MONO # 0.6 (0.1-0.6); MONO % 5.5 % (1.0-6.0); RED CELL DISTRIBUTION WIDTH 13.8 % (11.5-14.5)
--- NOTE | 2016-11-09 06:35 | CP.PCM.PN ---
<Dasia Mixon - Last Filed: 11/09/16 18:00> Subjective - Date & Time of Evaluation Date of Evaluation: 11/09/16 Time of Evaluation: 10:00 - Subjective Subjective: PGY2 Medicine note for Dr. Smith Patient seen and examined at bedside. Patient is POD#2 lap appy. She reports her abdominal pain has improved. She reports flatus but has not had a BM yet. She denies acute complaints of fever, chills, chest pain, palpitations, SOB, cough, nausea, vomiting, bowel/bladder complaints, pain/swelling in her legs bilaterally. She is tolerating diet. Objective - Vital Signs/Intake and Output Vital Signs (last 24 hours): Temp Pulse Resp BP Pulse Ox 98.8 F 81 20 112/69 98 11/08/16 23:00 11/08/16 23:00 11/08/16 23:00 11/08/16 23:00 11/08/16 23:00 Intake and Output: 11/08/16 11/09/16 18:59 06:59 Intake Total 1440 540 Output Total 40 Balance 1400 540 - Medications Medications: Current Medications Acetaminophen (Tylenol 325mg Tab) 650 mg PO Q4H PRN PRN Reason: Fever >100.4 F Docusate Sodium (Colace) 100 mg PO DAILY [facility] Last Admin: 11/08/16 22:21 Dose: 100 mg Heparin Sodium (Porcine) (Heparin) 5,000 units SC Q12 [facility] PRN Reason: Protocol Last Admin: 11/08/16 22:22 Dose: 5,000 units Hydromorphone HCl (Dilaudid) 0.5 mg IVP Q3 PRN PRN Reason: severe breakthrough pain Last Admin: 11/08/16 17:25 Dose: 0.5 mg Sodium Chloride (Sodium Chloride 0.9%) 1,000 mls @ 120 mls/hr IV .Q8H20M [facility] Last Admin: 11/08/16 23:44 Dose: 120 mls/hr Metronidazole (Flagyl) 500 mg in 100 mls @ 100 mls/hr IVPB Q8 [facility] PRN Reason: Protocol Last Admin: 11/09/16 06:14 Dose: 100 mls/hr Ampicillin Sodium/Sulbactam (Sodium 3 gm/ Sodium Chloride) 100 mls @ 200 mls/ hr IVPB Q6 [facility] PRN Reason: Protocol Last Admin: 11/09/16 05:08 Dose: 200 mls/hr Insulin Detemir (Levemir) 12 unit SC HS [facility] Last Admin: 11/08/16 22:22 Dose: 12 unit Insulin Human Lispro (Humalog Med) 0 units SC ACHS [facility] PRN Reason: Protocol Last Admin: 11/08/16 21:39 Dose: Not Given Lactobacillus Acidophilus (Bacid Acidophilus) 1 cap PO BID [facility] Pantoprazole Sodium (Protonix Ec Tab) 40 mg PO 0600 [facility] Last Admin: 11/09/16 05:08 Dose: 40 mg Simethicone (Mylicon Chew Tab) 80 mg PO [facility] PRN PRN Reason: GI distress Last Admin: 11/08/16 22:22 Dose: 80 mg Tramadol HCl (Ultram) 50 mg PO Q6 PRN PRN Reason: Pain, moderate (4-7) Last Admin: 11/09/16 05:08 Dose: 50 mg - Labs Labs: 11/08/16 06:40 11/08/16 06:40 PT 10.9 Seconds (9.9-11.8) 11/07/16 03:20 INR 1.01 (0.93-1.08) 11/07/16 03:20 APTT 29.3 Seconds (23.7-30.8) 11/07/16 03:20 - Constitutional Appears: Non-toxic, No Acute Distress - Head Exam Head Exam: ATRAUMATIC, NORMOCEPHALIC - Eye Exam Eye Exam: EOMI, Normal appearance. absent: Conjunctival injection, Scleral icterus - ENT Exam ENT Exam: Mucous Membranes Moist - Respiratory Exam Respiratory Exam: Clear to Ausculation Bilateral, NORMAL BREATHING PATTERN. absent: Accessory Muscle Use, Rales, Rhonchi, Wheezes, Respiratory Distress - Cardiovascular Exam Cardiovascular Exam: REGULAR RHYTHM, RRR, +S1, +S2 - GI/Abdominal Exam GI & Abdominal Exam: Soft, Tenderness, Normal Bowel Sounds - Extremities Exam Extremities Exam: Normal Inspection. absent: Pedal Edema - Neurological Exam Neurological Exam: Alert, Awake, Oriented x3 - Psychiatric Exam Psychiatric exam: Normal Affect, Normal Mood - Skin Skin Exam: Dry, Intact, Normal Color, Warm Assessment and Plan - Assessment and Plan (Free Text) Assessment: 55 year old female PMHx Type 1 DM presented with acute appendicitis. Medicine consulted for diabetes management. Plan: Acute Appendicitis - POD#2 lap appy - Unasyn 3gm ivpb q6 Day 3 - Flagyl 500mg ivpb q8 Day 3 - Tramadol 50mg po q6 prn - Tylenol 650mg po q4 prn - Dilaudid 0.5mg ivp q3 prn pain - Colace 100mg po qd - Simethicone 80mg po pchs prn - Florastor 1 cap po bid - Encouraged to ambulate and use IS and abdominal binder - Surgery Dr. Ureña on board IDDM - f/u HgbA1c - Levemir 12u sc hs - RISS - Accucheck - Lipid panel WNL TG 45 Cholesterol 162 LDL 92 HDL 53 GI ppx: Protonix 40mg po daily DVT ppx: Heparin 5000u sc q12; SCDs Diet: Consistent carb diet Dispo: likely d/c Friday 11/[address] Sarah Mixon PGY2 <Raissa Smith - Last Filed: 11/09/16 22:11> Objective - Vital Signs/Intake and Output Vital Signs (last 24 hours): Temp Pulse Resp BP Pulse Ox 97.7 F 70 22 109/67 97 11/09/16 16:41 11/09/16 16:41 11/09/16 16:41 11/09/16 16:41 11/09/16 16:41 Intake and Output: 11/09/16 11/10/16 18:59 06:59 Intake Total 540 Output Total 150 Balance 540 -150 - Medications Medications: Current Medications Acetaminophen (Tylenol 325mg Tab) 650 mg PO Q4H PRN PRN Reason: Fever >100.4 F Docusate Sodium (Colace) 100 mg PO DAILY [facility] Last Admin: 11/09/16 10:32 Dose: 100 mg Heparin Sodium (Porcine) (Heparin) 5,000 units SC Q12 [facility] PRN Reason: Protocol Last Admin: 11/09/16 21:51 Dose: 5,000 units Hydromorphone HCl (Dilaudid) 0.5 mg IVP Q3 PRN PRN Reason: severe breakthrough pain Last Admin: 11/08/16 17:25 Dose: 0.5 mg Metronidazole (Flagyl) 500 mg in 100 mls @ 100 mls/hr IVPB Q8 [facility] PRN Reason: Protocol Last Admin: 11/09/16 21:53 Dose: 100 mls/hr Ampicillin Sodium/Sulbactam (Sodium 3 gm/ Sodium Chloride) 100 mls @ 200 mls/ hr IVPB Q6 [facility] PRN Reason: Protocol Last Admin: 11/09/16 17:50 Dose: 200 mls/hr Insulin Detemir (Levemir) 15 unit SC HS [facility] Last Admin: 11/09/16 21:52 Dose: 15 unit Insulin Human Lispro (Humalog Med) 0 units SC ACHS [facility] PRN Reason: Protocol Last Admin: 11/09/16 21:40 Dose: Not Given Lactobacillus Acidophilus (Bacid Acidophilus) 1 cap PO BID [facility] Last Admin: 11/09/16 17:50 Dose: 1 cap Pantoprazole Sodium (Protonix Ec Tab) 40 mg PO 0600 [facility] Last Admin: 11/09/16 05:08 Dose: 40 mg Potassium Phos/Sodium Phos (Neutra-Phos) 1 pkt PO TID [facility] Stop: 11/10/16 10:01 Last Admin: 11/09/16 17:50 Dose: 1 pkt Simethicone (Mylicon Chew Tab) 80 mg PO [facility] PRN PRN Reason: GI distress Last Admin: 11/09/16 21:53 Dose: 80 mg Tramadol HCl (Ultram) 50 mg PO Q6 PRN PRN Reason: Pain, moderate (4-7) Last Admin: 11/09/16 21:53 Dose: 50 mg - Labs Labs: 11/09/16 06:00 11/09/16 06:00 PT 10.9 Seconds (9.9-11.8) 11/07/16 03:20 INR 1.01 (0.93-1.08) 11/07/16 03:20 APTT 29.3 Seconds (23.7-30.8) 11/07/16 03:20 Attending/Attestation - Attestation I have personally seen and examined this patient.: Yes I have fully participated in the care of the patient.: Yes I have reviewed all pertinent clinical information, including history, physical exam and plan: Yes Notes (Text): 11/09/16 22:08 55 year old female with past medical history of diabetes who presented with acute appendicitis. She is s/p appendectomy POD #2. Continue with antibiotics and analgesics as per surgery. Medical consult was requested for diabetes management. She is on insulin ss and levemir 12 units qhs for diabetes. Will increase to 15 units tonight. Will replete and replete labs (phosphorus). Raissa Smith MD Hospitalist.
[2016-11-09 06:47] LABS: ALB/GLOB RATIO 1.1 (1.1-1.8); ALKALINE PHOSPHATASE 94 U/L (38-133); ALT/SGPT 29 U/L (7-56); AST/SGOT 26 U/L (15-39); BILIRUBIN,TOTAL 0.3 mg/dL (0.2-1.3); BLOOD UREA NITROGEN 19 mg/dL (7-21); CALCIUM 8.8 mg/dL (8.4-10.5); CARBON DIOXIDE 23 mmol/L (21-33); CHLORIDE 107 mmol/L (98-107); GFR AFRICAN-AMERICAN > 60; GLUCOSE,RANDOM 199 mg/dL (70-110); MAGNESIUM 1.8 mg/dL (1.7-2.2); PHOSPHOROUS 2.2 mg/dL (2.5-4.5); POTASSIUM 3.9 mmol/L (3.6-5.0); SODIUM 138 mmol/L (132-148); TOTAL PROTEIN 6.2 g/dL (5.8-8.3)
[2016-11-09] MEDS: Insulin Lispro (humaLOG) MEDIUM Coverage SC SCH ×4 (08:25→21:40)
--- NOTE | 2016-11-09 08:58 | CP.PCM.PN ---
Subjective - Date & Time of Evaluation Date of Evaluation: 11/09/16 Time of Evaluation: 08:54 - Subjective Subjective: Surgery: Dr. Ureña Patient complains of some abdominal pain, appropriate. She reports being out of bed frequently yesterday which exacerbates her pain. She denies n/v/f/c. She report tolerating diet although appetite is not back to her norm. She reports adequate pain control with oral medication. She reports flatus but no bowel movement. Objective - Vital Signs/Intake and Output Vital Signs (last 24 hours): Temp Pulse Resp BP Pulse Ox 98.3 F 81 22 104/61 100 11/09/16 08:38 11/09/16 08:38 11/09/16 08:38 11/09/16 08:38 11/09/16 08:38 Intake and Output: 11/09/16 11/09/16 06:59 18:59 Intake Total 720 Output Total 75 Balance 645 - Medications Medications: Current Medications Acetaminophen (Tylenol 325mg Tab) 650 mg PO Q4H PRN PRN Reason: Fever >100.4 F Docusate Sodium (Colace) 100 mg PO DAILY [facility] Last Admin: 11/08/16 22:21 Dose: 100 mg Heparin Sodium (Porcine) (Heparin) 5,000 units SC Q12 [facility] PRN Reason: Protocol Last Admin: 11/08/16 22:22 Dose: 5,000 units Hydromorphone HCl (Dilaudid) 0.5 mg IVP Q3 PRN PRN Reason: severe breakthrough pain Last Admin: 11/08/16 17:25 Dose: 0.5 mg Metronidazole (Flagyl) 500 mg in 100 mls @ 100 mls/hr IVPB Q8 [facility] PRN Reason: Protocol Last Admin: 11/09/16 06:14 Dose: 100 mls/hr Ampicillin Sodium/Sulbactam (Sodium 3 gm/ Sodium Chloride) 100 mls @ 200 mls/ hr IVPB Q6 [facility] PRN Reason: Protocol Last Admin: 11/09/16 05:08 Dose: 200 mls/hr Insulin Detemir (Levemir) 12 unit SC HS [facility] Last Admin: 11/08/16 22:22 Dose: 12 unit Insulin Human Lispro (Humalog Med) 0 units SC ACHS [facility] PRN Reason: Protocol Last Admin: 11/09/16 08:25 Dose: 3 units Lactobacillus Acidophilus (Bacid Acidophilus) 1 cap PO BID [facility] Pantoprazole Sodium (Protonix Ec Tab) 40 mg PO 0600 [facility] Last Admin: 11/09/16 05:08 Dose: 40 mg Potassium Phos/Sodium Phos (Neutra-Phos) 1 pkt PO TID [facility] Stop: 11/10/16 10:01 Simethicone (Mylicon Chew Tab) 80 mg PO [facility] PRN PRN Reason: GI distress Last Admin: 11/08/16 22:22 Dose: 80 mg Tramadol HCl (Ultram) 50 mg PO Q6 PRN PRN Reason: Pain, moderate (4-7) Last Admin: 11/09/16 05:08 Dose: 50 mg - Labs Labs: 11/09/16 06:00 11/09/16 06:00 PT 10.9 Seconds (9.9-11.8) 11/07/16 03:20 INR 1.01 (0.93-1.08) 11/07/16 03:20 APTT 29.3 Seconds (23.7-30.8) 11/07/16 03:20 - Constitutional Appears: Non-toxic, No Acute Distress - Head Exam Head Exam: ATRAUMATIC, NORMOCEPHALIC - Eye Exam Eye Exam: EOMI, Normal appearance - ENT Exam ENT Exam: Mucous Membranes Moist - Respiratory Exam Respiratory Exam: NORMAL BREATHING PATTERN. absent: Respiratory Distress - Cardiovascular Exam Cardiovascular Exam: REGULAR RHYTHM. absent: Tachycardia - GI/Abdominal Exam GI & Abdominal Exam: Soft, Tenderness (neil-incisional which is appropriate). absent: Guarding, Rigid, Rebound Additional comments: kellen drain w/ 115cc/24hr serousanguineous - Neurological Exam Neurological Exam: Alert - Psychiatric Exam Psychiatric exam: Normal Affect, Normal Mood - Skin Skin Exam: Dry, Intact, Warm Assessment and Plan - Assessment and Plan (Free Text) Assessment: 55 y/o female s/p lap appendectomy w/ partial cecectomy POD2 Plan: -cont diet -cont OOB and IS use -pain cont to be moderate, will cont PO medication for pain control -abdominal binder -f/u drain output -cont abx -am labs -patient most likely for discharge Thursday pending clinical course -further recs per Dr. Ureña [facility] PGY3
[2016-11-09] MEDS: Potassium & Sodium Phosphate PO SCH ×3 (10:32→17:50)
[2016-11-09] MEDS: Lactobacillus Acidophilus 500 MU Cap PO SCH ×2 (10:32→17:50)
[2016-11-09] MEDS: Simethicone 80 mg Chewtab PO PRN (21:53)
[2016-11-09] MEDS ORDERED: Insulin Detemir 100 units/ml Vial (Levemir) SC SCH (22:00)
[2016-11-10 00:15] VITALS: O2SAT 99
--- NOTE | 2016-11-10 04:01 | OP ---
PROCEDURE DATE: 11/07/2016 PREOPERATIVE DIAGNOSES: 1. Acute Appendicitis with possible perforation. 2. Leukocytosis. POSTOPERATIVE DIAGNOSES: 1. Acute perforated gangrenous appendicitis. 2. 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 PROCEDURE DONE: 1. Laparoscopic appendectomy. 2. Laparoscopic partial cecectomy. 3. Laparoscopic drainage of intraabdominal right upper quadrant abscess. 4. Laparoscopic extensive lysis of congenital and postinfectious adhesion. SURGEON: Mani Ureña MD ASSISTANTS: Isabel Beyer, PGY-3 resident and Tracy Rees, PGY-2 resident. TYPE OF ANESTHESIA: General endotracheal tube anesthesia. INTRAOPERATIVE FINDINGS: The patient had partial malrotation of the right side of the colon and cecum appeared to be underneath the liver and the right colon was on the right paracolic gutter and the ileocecal junction was in the right upper quadrant underneath the liver and appendix was completely curled. Appendix was also necrosed and the base of the appendix was also necrosed and the partial cecectomy done to remove the appendix with the normal colonic wall. ESTIMATED BLOOD LOSS: Around 20 mL drain, 19-Croatian Moshe drain was placed. COMPLICATIONS: None. DESCRIPTION OF PROCEDURE: On intraoperative steps, this 55-year-old female who was diagnosed with the acute perforated appendicitis with leukocytosis and patient was consented for laparoscopic appendectomy possible open, brought to the OR, and placed supine on the operating table. After induction of the anesthesia, abdomen was prepped and draped in the usual sterile fashion. The supraumbilical transverse 1.5 cm incision was made after incising skin in subcutaneous tissue. The fascia was incised. Leena port was placed and pneumo was created. Another 5-mm port was placed in suprapubic region and another 12-mm port was placed in left lower quadrant. After grasper and dissector was introduced, the cecum appeared to be in the right upper quadrant and another 5-mm port was placed in the left upper quadrant and the cecum and right colon appeared to be completely curled and there was some component of the malrotation identified and first normal anatomy was identified and the ileocecal junction was also identified. The appendix was slowly dissected from the cecum and the appendix appeared to be ischemic and dusky. The base of the appendix was also appeared to be dusky and necrosed. Now, the mesoappendix was resected with the Harmonic scalpel and the part of the cecum was also resected and the partial cecectomy was done. The specimen was sent off the table for the pathology and there was a suction irrigation of the periappendicular as well as the right upper quadrant abscess was done and pelvic was also suction irrigated and a 19-Croatian Moshe drain was placed and the proper hemostasis in each and every part of the procedure and all the instrument was taken out and all the port was taken out under vision and pneumo was deflated. The umbilical port site was closed in 2 layer, the fascia with 0 Vicryl interrupted sutures and skin with 4-0 Monocryl and left lower quadrant port was closed in 2 layer, the fascia with 0 Vicryl and the skin with 4-0 Monocryl. The drain was secured to the skin and dry sterile dressing was applied. The patient was extubated in OR and sent to the postanesthesia care in stable condition. Mani Ureña MD
[2016-11-10] MEDS: Pantoprazole 40 mg EC Tab PO SCH (04:59)
[2016-11-10] MEDS: Ampicillin/Sulbactam 3 GM in Sodium Chloride 0.9% 100 ML IVPB SCH ×2 (04:59→11:08)
[2016-11-10] MEDS: metroNIDAZOLE IV 500 mg/100 ml 500 MG/100 ML BAG IVPB SCH (06:16)
[2016-11-10 07:22] LABS: BASO # 0.03 K/mm3 (0.0-2.0); BASO % 0.4 % (0.0-3.0); EOS # 0.2 (0.0-0.7); EOS % 3.3 % (1.5-5.0); GRAN # 4.16 (1.4-6.5); GRAN % 60.4 % (50.0-68.0); HEMATOCRIT 27.9 % (36.0-48.0); LYMPH # 2.1 (1.2-3.4); LYMPH % 30.5 % (22.0-35.0); MEAN CELL VOLUME 85.3 fl (80.0-105.0); MEAN CORPUSCULAR HEMOGLOBIN 27.5 pg (25.0-35.0); MEAN CORPUSCULAR HGB CONC 32.3 g/dl (31.0-37.0); MEAN PLATELET VOLUME 9.3 fl (7.0-11.0); MONO # 0.4 (0.1-0.6); MONO % 5.4 % (1.0-6.0); RED CELL DISTRIBUTION WIDTH 13.5 % (11.5-14.5); WHITE BLOOD COUNT 6.9 10^3/ul (4.5-11.0)
[2016-11-10 07:30] LABS: ALB/GLOB RATIO 1.1 (1.1-1.8); ALKALINE PHOSPHATASE 87 U/L (38-133); ALT/SGPT 29 U/L (7-56); AST/SGOT 23 U/L (15-39); BILIRUBIN,TOTAL 0.3 mg/dL (0.2-1.3); BLOOD UREA NITROGEN 13 mg/dL (7-21); CARBON DIOXIDE 26 mmol/L (21-33); CHLORIDE 104 mmol/L (98-107); GFR AFRICAN-AMERICAN > 60; GLUCOSE,RANDOM 95 mg/dL (70-110); MAGNESIUM 1.6 mg/dL (1.7-2.2); PHOSPHOROUS 3.5 mg/dL (2.5-4.5); POTASSIUM 3.7 mmol/L (3.6-5.0); SODIUM 137 mmol/L (132-148)
[2016-11-10] MEDS: Insulin Lispro (humaLOG) MEDIUM Coverage SC SCH (07:30)
[2016-11-10 08:17] VITALS: BP 112/76; PULSE 71; RESP 20; TEMP 98.4
[2016-11-10] MEDS: Potassium & Sodium Phosphate PO SCH (10:01)
[2016-11-10] MEDS: Lactobacillus Acidophilus 500 MU Cap PO SCH (10:01)
--- NOTE | 2016-11-10 15:04 | CP.PCM.PN ---
<Patricia Solomon - Last Filed: 11/10/16 15:01> Subjective - Date & Time of Evaluation Date of Evaluation: 11/10/16 Time of Evaluation: 11:00 - Subjective Subjective: PGY-2 Medicine Progress note. Patient seen and examined at bedside. Patient is POD#3 lap appy. Patient is doing well, nurse reports no acute events overnight. She reports her abdominal pain has improved. She reports flatus but has not had a BM. She denies fever, chills, chest pain, chest pain, SOB, cough, n/v, urinary complaints, swelling in her legs bilaterally. She is tolerating diet. Objective - Vital Signs/Intake and Output Vital Signs (last 24 hours): Temp Pulse Resp BP Pulse Ox 98.4 F 71 20 112/76 99 11/10/16 08:16 11/10/16 08:16 11/10/16 08:16 11/10/16 08:16 11/10/16 08:16 Intake and Output: 11/10/16 11/10/16 06:59 18:59 Intake Total 840 Output Total 210 Balance 630 - Labs Labs: 11/10/16 05:50 11/10/16 05:50 PT 10.9 Seconds (9.9-11.8) 11/07/16 03:20 INR 1.01 (0.93-1.08) 11/07/16 03:20 APTT 29.3 Seconds (23.7-30.8) 11/07/16 03:20 - Constitutional Appears: Well, No Acute Distress - Head Exam Head Exam: ATRAUMATIC, NORMOCEPHALIC - Eye Exam Eye Exam: Normal appearance - ENT Exam ENT Exam: Mucous Membranes Moist - Respiratory Exam Respiratory Exam: Clear to Ausculation Bilateral, NORMAL BREATHING PATTERN. absent: Decreased Breath Sounds, Rales, Rhonchi, Wheezes, Respiratory Distress - Cardiovascular Exam Cardiovascular Exam: REGULAR RHYTHM, +S1, +S2. absent: Tachycardia, Murmur - GI/Abdominal Exam GI & Abdominal Exam: Tenderness, Normal Bowel Sounds. absent: Distended, Firm Additional comments: GINI drain in place, dressing clean, dry and intact - Extremities Exam Extremities Exam: Normal Inspection. absent: Pedal Edema - Neurological Exam Neurological Exam: Alert, Awake, Oriented x3 - Skin Skin Exam: Dry, Intact, Normal Color, Warm Assessment and Plan - Assessment and Plan (Free Text) Assessment: 55 year old female PMHx Type 1 DM presented with acute appendicitis. Medicine consulted for diabetes management. Plan: 1. Acute Appendicitis - POD#3 lap appy - currently on Unasyn 3gm ivpb q6 Day 4, Flagyl 500mg ivpb q8 Day 4 - currently on Tramadol 50mg po q6 prn, Tylenol 650mg po q4 prn, Dilaudid 0.5mg ivp q3 prn pain - currently on Colace 100mg po qd, Simethicone 80mg po pchs prn, Florastor 1 cap po bid - patient ambulate and use IS and abdominal binder - Surgery Dr. Ureña on board 2. IDDM - HgbA1c 9.5 - Levemir increased to 15u sc hs - RISS - Accucheck - Lipid panel WNL - Blood sugar is controlled, we will sign off, consult if new symptoms occur GI ppx: Protonix 40mg po daily DVT ppx: Heparin 5000u sc q12; SCDs Diet: Consistent carb diet <Butch LEWIS,[facility] - Last Filed: 11/10/16 17:20> Objective - Vital Signs/Intake and Output Vital Signs (last 24 hours): Temp Pulse Resp BP Pulse Ox 98.4 F 71 20 112/76 99 11/10/16 08:16 11/10/16 08:16 11/10/16 08:16 11/10/16 08:16 11/10/16 08:16 Intake and Output: 11/10/16 11/10/16 06:59 18:59 Intake Total 840 Output Total 210 Balance 630 - Labs Labs: 11/10/16 05:50 11/10/16 05:50 PT 10.9 Seconds (9.9-11.8) 11/07/16 03:20 INR 1.01 (0.93-1.08) 11/07/16 03:20 APTT 29.3 Seconds (23.7-30.8) 11/07/16 03:20 Attending/Attestation - Attestation I have personally seen and examined this patient.: Yes I have fully participated in the care of the patient.: Yes I have reviewed all pertinent clinical information, including history, physical exam and plan: Yes Notes (Text): 11/10/16 17:18 Patient was seen and examined with medical director of hospice. Agreed with resident assessment and plan. Patient is feeling better.Blood sugars are better controlled with current regimen.She is tolerating food. We will sign off.Please call us back if any question. Management plan was discussed in detail with patient Education was provided.
== END 2016-11-10 13:50 | disposition home or self-care (01) | DRG 330 ==
LOC: ED 02:52 → ERH 05:20 → 5RSO 06:52
PROVIDERS: ADMIT Specialist; ATTEND Specialist
PROC: 0DBH4ZZ Excision of Cecum, Percutaneous Endoscopic Approach (ICD-10-PCS; 2016-11-07)
PROC: 0DTJ4ZZ Resection of Appendix, Percutaneous Endoscopic Approach (ICD-10-PCS; principal; 2016-11-07 15:30)
DX: K35.2 Acute appendicitis with generalized peritonitis (principal); Q43.3 Congenital malformations of intestinal fixation; E10.9 Type 1 diabetes mellitus without complications